=== PATIENT | female | born 1970 | race Caucasian/White ===

== ENCOUNTER 2018-12-12 04:31 | Emergency (ER) | payer MEDICAID ==
[~2018-12-12] VITALS: Ht 165.1 cm; Wt 72.0 kg
[2018-12-12 04:35] VITALS: Ht 165.1 cm; Wt 72.0 kg
[2018-12-12] MEDS ORDERED: ONDANSETRON 4 MG INJ IV STA (05:56)
[2018-12-12] MEDS ORDERED: METOCLOPRAMIDE 10 MG INJ IV STA (05:56)
[2018-12-12] MEDS ORDERED: LIDOCAINE/MYLANTA 40 ML BTL PO STA (05:56)
[2018-12-12] MEDS ORDERED: BELLADONNA/PHENOBARBITAL TAB PO STA (05:56)
--- NOTE | 2018-12-12 05:59 | ERD ---
ER Documentation Chief Complaint Chief Complaint abdominal/chest pain x 3 days HPI This is a 48-year-old female with no significant past medical history, previous who is presenting with 3 days of general cramping aching colicky moderate waxing and waning abdominal pain, worse in the right upper quadrant with associated nausea but no vomiting. The patient reports that the pain radiates into the right chest as well. The patient does report a history of constipation. Her last bowel movement was yesterday, but she does feel constipated. She did have an episode of dysuria yesterday as well. She denies hematuria or urinary frequency or urgency. She has not had any diarrhea. The patient has not had any shortness of breath or lightheadedness or dizziness or diaphoresis. The patient denies feeling sick recently. The patient denies fever or chills. The patient has had no headache or vision changes. The patient does not endorse neck or back pain. The patient has had no focal deficits. The patient has had no weakness or numbness or tingling to the face or extremities. ROS All systems reviewed and are negative except as per history of present illness. Allergies Allergies: Coded Allergies: No Known Drug Allergies (Verified Allergy, Unknown, 12/12/18) PMhx/Soc Medical and Surgical Hx: pt denies Medical Hx History of Surgery: Yes () Anesthesia Reaction: No Hx Neurological Disorder: No Hx Respiratory Disorders: No Hx Cardiac Disorders: No Hx Psychiatric Problems: No Hx Miscellaneous Medical Probl: No Hx Alcohol Use: No Hx Substance Use: No Hx Tobacco Use: No Smoking Status: Never smoker FmHx Family History: No diabetes Physical Exam Vitals Vital Signs Date Temp Pulse Resp B/P (MAP) Pulse Ox O2 O2 Flow FiO2 Time Delivery Rate 12/12/18 71 21 109/67 100 Room Air 05:10 (81) 12/12/18 75 20 109/67 100 Room Air 04:45 (81) 12/12/18 97.2 64 18 102/54 100 04:35 (70) Physical Exam Const: No apparent distress, well-developed, well-nourished Head: Normocephalic, Atraumatic Eyes: Normal Conjunctiva. Extraocular movements intact. Pupils equal, round and reactive to light ENT: Normal External Ears, Nose and Mouth. Neck: Full range of motion. No meningismus. Resp: Clear to auscultation bilaterally, No wheezes, rales or rhonchi Cardio: Regular rate and rhythm. No murmurs, rubs or gallops Abd: Soft, non distended. Mild epigastric and right upper quadrant tenderness. Normal bowel sounds Skin: No petechiae or rashes Back: No midline tenderness. No CVA tenderness Ext: No cyanosis, or edema Neur: Awake and alert, oriented 4. Cranial nerves intact. No facial droop. Normal strength, sensation and coordination. Psych: Normal Mood and Affect Result Diagram: 12/12/1845412/12/18454 Results 24 hrs Laboratory Tests Test 12/12/18 04:55 White Blood Count 8.0 10^3/ul Red Blood Count 4.89 10^6/ul Hemoglobin 13.6 g/dl Hematocrit 41.1 % Mean Corpuscular Volume 84.0 fl Mean Corpuscular Hemoglobin 27.8 pg Mean Corpuscular Hemoglobin Concent 33.1 g/dl Red Cell Distribution Width 13.2 % Platelet Count 273 10^3/UL Mean Platelet Volume 11.6 fl Immature Granulocytes % 0.300 % Neutrophils % 48.4 % Lymphocytes % 40.0 % Monocytes % 8.4 % Eosinophils % 2.5 % Basophils % 0.4 % Nucleated Red Blood Cells % 0.0 /100WBC Immature Granulocytes # 0.020 10^3/ul Neutrophils # 3.9 10^3/ul Lymphocytes # 3.2 10^3/ul Monocytes # 0.7 10^3/ul Eosinophils # 0.2 10^3/ul Basophils # 0.0 10^3/ul Nucleated Red Blood Cells # 0.0 10^3/ul Urine Color YELLOW Urine Clarity SLIGHTLY CLOUDY Urine pH 5.0 Urine Specific [place] 1.021 Urine Ketones NEGATIVE mg/dL Urine Nitrite NEGATIVE mg/dL Urine Bilirubin NEGATIVE mg/dL Urine Urobilinogen NEGATIVE mg/dL Urine Leukocyte Esterase TRACE Luanne/ul Urine Microscopic RBC 3 /HPF Urine Microscopic WBC 13 /HPF Urine Squamous Epithelial Cells MODERATE /HPF Urine Bacteria FEW /HPF Urine Mucus FEW /HPF Urine Hemoglobin 2+ mg/dL Urine Glucose NEGATIVE mg/dL Urine Total Protein NEGATIVE mg/dl Sodium Level 144 mmol/L Potassium Level 4.1 mmol/L Chloride Level 107 mmol/L Carbon Dioxide Level 26 mmol/L Anion Gap 11 Blood Urea Nitrogen 11 mg/dl Creatinine 0.71 mg/dl Est Glomerular Filtrat Rate mL/min > 60 mL/min Glucose Level 99 mg/dl Calcium Level 9.8 mg/dl Total Bilirubin 0.4 mg/dl Direct Bilirubin 0.00 mg/dl Indirect Bilirubin 0.4 mg/dl Aspartate Amino Transf (AST/SGOT) 27 IU/L Alanine Aminotransferase (ALT/SGPT) 21 IU/L Alkaline Phosphatase 70 IU/L Troponin I < 0.012 ng/ml Total Protein 7.7 g/dl Albumin 4.2 g/dl Globulin 3.50 g/dl Albumin/Globulin Ratio 1.20 Lipase 106 U/L Procedures/MDM MDM The patient's presentation warrants further investigation. Previous medical records, if available, were reviewed. LABS The patient's laboratory testing was obtained and reviewed. No emergent treatment was required unless described below. CBC: No E/o of systemic infection or severe anemia or thrombocytopenia CMP: No E/o severe acidosis or alkalosis or renal failure or liver disease or diabetic ketoacidosis Lipase: No E/o pancreatitis Troponin: No E/o acute ischemia Urine: E/o acute infection with hematuria EKG EKG read by me: Rate/Rhythm: Regular rate and rhythm at a rate of 74 bpm Intervals: Normal Frederica: Normal Impression: No evidence of acute ischemia or arrhythmia IMAGING Imaging and Radiology interpretation reviewed. CXR FINDINGS: Hypoventilatory chest. Patient is slightly rotated to the right tilted to the left. Elevated right hemidiaphragm. Cardiomediastinal silhouette is normal. Pulmonary vasculature is normal. Lungs and costophrenic angles are clear. IMPRESSION: No evidence of acute cardiopulmonary disease. Electronically viewed and signed by Physician Magui on 12/12/2018 05:29 US RUQ FINDINGS: The liver is of normal size, contour and echogenicity with no mass or intrahepatic ductal dilatation. Portal and hepatic vein are patent on color flow Doppler imaging. The common bile duct measures 2.6 millimeter in transverse diameter.No gallstones are identified. Gallbladder wall is not thickened and no abnormal pericholecystic fluid collection is seen. No sonographic Joy's sign was elicited during this exam. There is no ascites. The pancreas is not well visualized. The right kidney measures 8.2 cm in length. No hydronephrosis, calculus or masses seen. . There is no evidence of abdominal aortic aneurysm or caval thrombosis. IMPRESSION: No evidence of cholelithiasis, cholecystitis or biliary obstruction. Poor visualization of pancreas. Electronically viewed and signed by .Eugene Barker MD, on 12/12/2018 05:54 TREATMENT/DISPOSITION The patient presents with abdominal pain. The patient did report epigastric and right upper quadrant pain. Gastritis versus GERD versus PUD are all possibiliti es. The patient was given Pepcid and a GI cocktail in the emergency department. A right upper quadrant ultrasound was completed and does not reveal any evidence of cholelithiasis or cholecystitis. I have low suspicion for biliary colic. The patient's urinalysis is concerning for possible urinary tract infection which I do intend to treat with antibiotics in an outpatient setting. The patient also endorses issues with constipation. She will also be given a prescription for MiraLAX. The patient does not have any evidence of peritonitis. The patient does not have clinical symptoms concerning for mesenteric ischemia or ischemic colitis. The patient does not have left upper quadrant tenderness. I have low suspicion for pancreatitis. The patient does not have any right lower quadrant tenderness, or periumbilical tenderness. I have low suspicion for appendicitis. The patient does not have any left lower quadrant tenderness, and I have low suspicion for diverticulosis or diverticulitis. The patient does not have any flank tenderness. The patient does not have gross hematuria. I have decreased suspicion for nephrolithiasis or renal colic. The patient does not have any palpable pulsatile mass or severe abdominal pain radiating to the back. I have low suspicion for aortic aneurysm, dissection or rupture. The patient was was also treated with Zofran for symptom control. Upon reevaluation of the patient, symptoms have improved. No emergent diagnoses were identified. At this time, I feel that the patient stable for discharge. The patient was instructed to follow-up with a primary care physician in 1-3 days. The patient will be given strict precautions with which to return to the emergency department. Prescriptions: Zofran, Macrobid, Pepcid, MiraLAX Disclaimer: Inadvertent spelling and grammatical errors are likely due to EHR/dictation software use and do not reflect on the overall quality of patient care. Note that the electronic time recorded on this note does not necessarily reflect the actual time of the patient encounter. Departure Diagnosis: Primary Impression: Abdominal pain Abdominal location: epigastric Qualified Codes: R10.13 - Epigastric pain Additional Impressions: Dysuria Urinary tract infection Urinary tract infection type: acute cystitis Hematuria presence: with h ematuria Qualified Codes: N30.01 - Acute cystitis with hematuria Constipation Constipation type: unspecified constipation type Qualified Codes: K59.00 - Constipation, unspecified Condition: Stable ROSA MARIA MARIA MD Dec 12, 2018 05:59
[2018-12-12] MEDS ORDERED: FAMO-96 PO (06:00)
[2018-12-12] MEDS ORDERED: NITR-58 PO (06:00)
[2018-12-12] MEDS ORDERED: ONDA4TAB8 PO (06:00)
[2018-12-12] MEDS ORDERED: POLY17PO6 PO (06:00)
[2018-12-12 06:31] VITALS: BP 106/71; PULSE 76; RESP 18
== END 2018-12-12 07:27 | disposition home or self-care (01) ==
LOC: E/R 04:31
DX: N30.01 Acute cystitis with hematuria (principal); K59.00 Constipation, unspecified
CPT/HCPCS: 36415; 71045; 76705; 80053; 81001; 83690; 84484; 85025; 93005; 96374; 96375; J2405; J2765; Z7502; Z7610